=== PATIENT | female | born 1970 | race Caucasian/White ===

== ENCOUNTER 2021-12-05 08:39 | Inpatient (IN) | payer OTHER ==
[2021-12-05 09:35] VITALS: BMI 17.6
[2021-12-05] MEDS ORDERED: METHOCARBAMOL 500 MG TABLET PO PRN (10:07)
[2021-12-05] MEDS ORDERED: MAGNESIUM CITRATE 300 ML BOTTLE PO PRN (10:07)
[2021-12-05] MEDS ORDERED: IBUPROFEN 400 MG TABLET (FP) PO PRN (10:07)
[2021-12-05] MEDS ORDERED: MAGNESIUM HYDROX 2400MG/30ML ORAL SUSPENSION 30 ML CUP PO PRN (10:07)
[2021-12-05] MEDS ORDERED: NICOTINE POLACRILEX 4 MG GUM BUC PRN (10:07)
[2021-12-05] MEDS ORDERED: DICYCLOMINE HCL 10 MG CAPSULE PO PRN (10:07)
[2021-12-05] MEDS ORDERED: ONDANSETRON *ODT* 4 MG TABLET SL PRN (10:07)
[2021-12-05] MEDS ORDERED: BISMUTH SUBSALICYLATE 524 MG/30 ML PO PRN (10:07)
[2021-12-05] MEDS ORDERED: ACETAMINOPHEN 325 MG TABLET (FP) PO PRN (10:07)
[2021-12-05] MEDS ORDERED: BENZOCAINE/MENTHOL (CHLORASEPTIC ) LOZENGE MM PRN (10:07)
[2021-12-05] MEDS ORDERED: LOPERAMIDE HCL 2 MG CAPSULE PO PRN (10:07)
[2021-12-05] MEDS ORDERED: MAG HYDROX/AL HYDROX/SIMETH 30 ML UNIT-DOSE CUP PO PRN (10:07)
[2021-12-05] MEDS ORDERED: ALBUTEROL SO4 HFA INHALER IH PRN (10:10)
[2021-12-05] MEDS: PRENATAL VITAMINS W/ FOLIC ACID TABLET (FP) PO SCH (13:57)
[2021-12-05] MEDS: FAMOTIDINE 20 MG TABLET PO SCH (13:58)
[2021-12-05] MEDS: NICOTINE 10 MG CARTRIDGE (INHALER) IH PRN (13:58)
[2021-12-05] MEDS: FERROUS SO4 325 MG TABLET (FP) PO SCH (13:58)
[2021-12-05] MEDS: LIDOCAINE 5% TOPICAL PATCH TP SCH (14:06)
[2021-12-05] MEDS: NICOTINE 21 MG/24 HOURS TOPICAL PATCH TD SCH (14:07)
[2021-12-05] MEDS ORDERED: MELATONIN 5 MG TABLETS PO SCH (22:00)
[2021-12-05] MEDS: THIAMINE HCL 100 MG TABLET (FP) PO SCH (22:32)
[2021-12-05] MEDS: LIDOCAINE PATCH REMOVAL MC SCH (22:33)
[2021-12-06] MEDS: FERROUS SO4 325 MG TABLET (FP) PO SCH (09:36)
[2021-12-06] MEDS: methaDONE HCL 40 MG DISPERSABLE TABLET PO SCH (09:36)
[2021-12-06] MEDS: LIDOCAINE 5% TOPICAL PATCH TP SCH (09:36)
[2021-12-06] MEDS: PRENATAL VITAMINS W/ FOLIC ACID TABLET (FP) PO SCH (09:36)
[2021-12-06] MEDS: FAMOTIDINE 20 MG TABLET PO SCH (09:36)
[2021-12-06] MEDS: NICOTINE 21 MG/24 HOURS TOPICAL PATCH TD SCH (09:37)
[2021-12-06] MEDS ORDERED: chlordiazePOXIDE HCL 25 MG CAPSULE PO PRN (10:25)
[2021-12-06] MEDS: chlordiazePOXIDE HCL 25 MG CAPSULE PO SCH ×3 (12:04→22:12)
[2021-12-06 16:31] LABS: ALBUMIN 3.2 g/dl (3.4-5.0); BLOOD UREA NITROGEN 9.4 mg/dL (7-18); CALCIUM 8.7 mg/dL (8.5-10.1)
[2021-12-06 16:33] LABS: CREATININE 0.7 mg/dL (0.55-1.3)
[2021-12-06 16:35] LABS: TOT PROT 7.3 g/dl (6.4-8.2)
[2021-12-06 16:36] LABS: BILIRUBIN,TOTAL 0.3 mg/dL (0.2-1)
[2021-12-06 16:51] LABS: HEMOGLOBIN 9.9 GM/dL (10.7-15.3); MCHC 29.9 g/dl (32.0-36.0); MEAN CELL VOLUME 70.2 fl (80-96); MEAN PLT VOLUME 8.9 fl (7.5-11.1); PLATELET COUNT 419 10^3/uL (134-434); RDW 21.6 % (11.6-15.6); WHITE BLOOD COUNT 5.8 K/mm3 (4.0-10.0)
[2021-12-06 17:19] LABS: HIV INTERPRETATION NEGATIVE (NEGATIVE)
[2021-12-06] MEDS: SUVOREXANT 10 MG TABLET PO PRN (22:12)
[2021-12-06] MEDS: THIAMINE HCL 100 MG TABLET (FP) PO SCH (22:12)
[2021-12-06] MEDS: QUEtiapine FUMARATE 100 MG TABLET (FP) PO SCH (22:12)
[2021-12-06] MEDS: LIDOCAINE PATCH REMOVAL MC SCH (22:13)
[2021-12-07] MEDS: methaDONE HCL 40 MG DISPERSABLE TABLET PO SCH (05:46)
[2021-12-07] MEDS: chlordiazePOXIDE HCL 10 MG CAPSULE PO SCH ×4 (05:47→22:08)
[2021-12-07] MEDS: PRENATAL VITAMINS W/ FOLIC ACID TABLET (FP) PO SCH (10:01)
[2021-12-07] MEDS: FAMOTIDINE 20 MG TABLET PO SCH (10:01)
[2021-12-07] MEDS: FERROUS SO4 325 MG TABLET (FP) PO SCH (10:01)
[2021-12-07] MEDS: LIDOCAINE 5% TOPICAL PATCH TP SCH (10:03)
[2021-12-07] MEDS: NICOTINE 21 MG/24 HOURS TOPICAL PATCH TD SCH (10:04)
[2021-12-07] MEDS: ACETAMINOPHEN 325 MG TABLET (FP) PO PRN ×2 (10:06→17:32)
[2021-12-07 21:19] VITALS: RESP 18
[2021-12-07] MEDS: SUVOREXANT 10 MG TABLET PO PRN (22:08)
[2021-12-07] MEDS: THIAMINE HCL 100 MG TABLET (FP) PO SCH (22:08)
[2021-12-07] MEDS: LIDOCAINE PATCH REMOVAL MC SCH (22:08)
[2021-12-07] MEDS: QUEtiapine FUMARATE 100 MG TABLET (FP) PO SCH (22:08)
[2021-12-08] MEDS ORDERED: chlordiazePOXIDE HCL 10 MG CAPSULE PO PRN
[2021-12-08] MEDS: chlordiazePOXIDE HCL 10 MG CAPSULE PO SCH ×2 (05:31→17:56)
[2021-12-08] MEDS: hydrOXYzine PAMOATE 25 MG CAPSULE (FP) PO PRN ×2 (05:31→22:02)
[2021-12-08] MEDS: methaDONE HCL 40 MG DISPERSABLE TABLET PO SCH (05:32)
[2021-12-08] MEDS: NICOTINE 21 MG/24 HOURS TOPICAL PATCH TD SCH (10:16)
[2021-12-08] MEDS: FERROUS SO4 325 MG TABLET (FP) PO SCH (10:16)
[2021-12-08] MEDS: PRENATAL VITAMINS W/ FOLIC ACID TABLET (FP) PO SCH (10:16)
[2021-12-08] MEDS: FAMOTIDINE 20 MG TABLET PO SCH (10:16)
[2021-12-08] MEDS: LIDOCAINE 5% TOPICAL PATCH TP SCH (10:17)
[2021-12-08] MEDS: NICOTINE 10 MG CARTRIDGE (INHALER) IH PRN (10:19)
[2021-12-08] MEDS: ACETAMINOPHEN 325 MG TABLET (FP) PO PRN (17:57)
[2021-12-08] MEDS: SUVOREXANT 10 MG TABLET PO PRN (22:01)
[2021-12-08] MEDS: THIAMINE HCL 100 MG TABLET (FP) PO SCH (22:02)
[2021-12-08] MEDS: QUEtiapine FUMARATE 100 MG TABLET (FP) PO SCH (22:02)
[2021-12-08] MEDS: LIDOCAINE PATCH REMOVAL MC SCH (22:58)
[2021-12-09] MEDS ORDERED: chlordiazePOXIDE HCL 10 MG CAPSULE PO ONE (05:00)
[2021-12-09] MEDS: methaDONE HCL 40 MG DISPERSABLE TABLET PO SCH (05:29)
[2021-12-09 08:58] VITALS: BP 102/60; PULSE 62; TEMP 97.7
[2021-12-09] MEDS: FERROUS SO4 325 MG TABLET (FP) PO SCH (10:13)
[2021-12-09] MEDS: PRENATAL VITAMINS W/ FOLIC ACID TABLET (FP) PO SCH (10:13)
[2021-12-09] MEDS: FAMOTIDINE 20 MG TABLET PO SCH (10:13)
[2021-12-09] MEDS: LIDOCAINE 5% TOPICAL PATCH TP SCH (10:13)
[2021-12-09] MEDS: NICOTINE 21 MG/24 HOURS TOPICAL PATCH TD SCH (10:14)
[2021-12-09] MEDS: ACETAMINOPHEN 325 MG TABLET (FP) PO PRN (10:15)
== END 2021-12-09 11:38 | disposition home or self-care (01) | DRG 773 ==
LOC: YASAS 08:39 → Y3N 12:48 → UNDOADMIN 12:48 → Y3N 16:46
PROVIDERS: ADMIT Allergy & Immunology; ATTEND Surgery
PROC: HZ2ZZZZ Detoxification Services for Substance Abuse Treatment (ICD-10-PCS; principal; 2021-12-05)
DX: F10.230 Alcohol dependence with withdrawal, uncomplicated (principal); F14.20 Cocaine dependence, uncomplicated; F11.20 Opioid dependence, uncomplicated; F12.20 Cannabis dependence, uncomplicated; F17.210 Nicotine dependence, cigarettes, uncomplicated; F31.9 Bipolar disorder, unspecified; F19.282 Other psychoactive substance dependence with psychoactive substance-induced sleep disorder; G62.9 Polyneuropathy, unspecified; D50.9 Iron deficiency anemia, unspecified; J45.909 Unspecified asthma, uncomplicated; K21.9 Gastro-esophageal reflux disease without esophagitis; M17.0 Bilateral primary osteoarthritis of knee; M41.9 Scoliosis, unspecified; M54.50 Low back pain, unspecified; G89.29 Other chronic pain; Z62.810 Personal history of physical and sexual abuse in childhood; Z91.410 Personal history of adult physical and sexual abuse
CPT/HCPCS: 36415; 80053; 81025; 85027; 86780; 87389; 87811; 93005; 93010; C9803-CS; U0003; U0005

== ENCOUNTER 2023-09-23 09:51 | Inpatient (IN) | payer OTHER ==
[2023-09-23 10:34] VITALS: BMI 18.3
[2023-09-23] MEDS ORDERED: NALOXONE HCL 0.4 MG/ML VIAL IM PRN (11:15)
[2023-09-23] MEDS ORDERED: DICYCLOMINE HCL 10 MG CAPSULE PO PRN (11:15)
[2023-09-23] MEDS ORDERED: MAGNESIUM HYDROX 2400MG/30ML ORAL SUSPENSION 30 ML CUP PO PRN (11:15)
[2023-09-23] MEDS ORDERED: LOPERAMIDE HCL 2 MG CAPSULE PO PRN (11:15)
[2023-09-23] MEDS ORDERED: NALOXONE (NARCAN) HCL 4 MG/0.1 ML SPRAY NS PRN (11:15)
[2023-09-23] MEDS ORDERED: IBUPROFEN 400 MG TABLET (FP) PO PRN (11:15)
[2023-09-23] MEDS ORDERED: MAG HYDROX/AL HYDROX/SIMETH 30 ML UNIT-DOSE CUP PO PRN (11:15)
[2023-09-23] MEDS ORDERED: BISMUTH SUBSALICYLATE 524 MG/30 ML PO PRN (11:15)
[2023-09-23] MEDS ORDERED: BENZONATATE 200 MG CAPSULE PO PRN (11:15)
[2023-09-23] MEDS ORDERED: BENZOCAINE/MENTHOL (CHLORASEPTIC ) LOZENGE MM PRN (11:15)
[2023-09-23] MEDS ORDERED: LORazepam 1 MG TABLET PO PRN (11:15)
[2023-09-23] MEDS ORDERED: POLYETHYLENE GLYCOL (HEALTHYLAX) 3350 17 GM PACKET PO PRN (11:15)
[2023-09-23] MEDS ORDERED: ALBUTEROL SO4 HFA INHALER IH PRN (11:21)
[2023-09-23] MEDS ORDERED: methaDONE HCL 40 MG DISPERSABLE TABLET PO SCH ×2 (11:30→13:00)
[2023-09-23] MEDS: GABAPENTIN 300 MG CAPSULE PO SCH ×2 (12:14→13:32)
[2023-09-23] MEDS: ONDANSETRON *ODT* 4 MG TABLET SL PRN (12:15)
[2023-09-23] MEDS ORDERED: GABAPENTIN 100 MG CAPSULE ONE (12:19)
[2023-09-23] MEDS ORDERED: ONDANSETRON *ODT* 4 MG TABLET ONE (12:19)
[2023-09-23] MEDS: FERROUS SO4 325 MG TABLET (FP) PO SCH (15:41)
[2023-09-23] MEDS: LORazepam 2 MG TABLET PO SCH (17:18)
[2023-09-23] MEDS: ACETAMINOPHEN 325 MG TABLET (FP) PO PRN (17:18)
[2023-09-23] MEDS: MELATONIN 5 MG TABLETS PO SCH (22:48)
[2023-09-23] MEDS: THIAMINE 100 MG TABLET PO SCH (22:48)
[2023-09-23] MEDS: diazePAM 5 MG TABLET PO SCH (22:49)
[2023-09-24] MEDS ORDERED: methaDONE HCL 40 MG DISPERSABLE TABLET PO ONE (08:00)
[2023-09-24] MEDS: PRENATAL VITAMINS W/ FOLIC ACID TABLET (FP) PO SCH (10:19)
[2023-09-24] MEDS: FLUoxetine HCL 20 MG CAPSULE PO SCH (10:20)
[2023-09-24 11:18] LABS: CHLORIDE 104 mmol/L (98-107); HEMATOCRIT 30.2 % (32.4-45.2); HEMOGLOBIN 9.7 GM/dL (10.7-15.3); MEAN CELL VOLUME 78.1 fl (80-96); MEAN PLT VOLUME 8.9 fl (7.5-11.1); PLATELET COUNT 327 10^3/uL (134-434); POTASSIUM 3.9 mmol/L (3.5-5.1); RBC 3.87 M/mm3 (3.60-5.2); RDW 19.8 % (11.6-15.6); SODIUM 138 mmol/L (136-145); WHITE BLOOD COUNT 7.2 K/mm3 (4.0-10.0)
[2023-09-24 11:20] LABS: CALCIUM 8.3 mg/dL (8.5-10.1)
[2023-09-24 11:21] LABS: ANION GAP 10 mmol/L (4-13); BLOOD UREA NITROGEN 13.6 mg/dL (7-18); CO2 24 mmol/L (21-32); GLUCOSE,RANDOM 184 mg/dL (74-106)
[2023-09-24 11:24] LABS: CREATININE 0.9 mg/dL (0.55-1.3); SGOT/AST 13 U/L (15-37); SGPT/ALT 14 U/L (13-61)
[2023-09-24 11:25] LABS: BILIRUBIN,TOTAL 0.3 mg/dL (0.2-1); TOT PROT 6.4 g/dl (6.4-8.2)
[2023-09-24 11:27] LABS: ALK PHOS 59 U/L (45-117)
[2023-09-24] MEDS: PNEUMOC 20-VAL CONJ-DIP CRM/PF 0.5 ML SYRINGE IM ONE (12:58)
[2023-09-24] MEDS: guaiFENesin 600 MG TABLET.ER (FP) PO PRN (15:57)
[2023-09-24] MEDS: QUEtiapine FUMARATE 25 MG TABLET PO SCH (22:04)
[2023-09-25] MEDS ORDERED: LORazepam 1 MG TABLET PO SCH (05:00)
[2023-09-25] MEDS: diazePAM 5 MG TABLET PO SCH (05:44)
[2023-09-25] MEDS: IBUPROFEN 600 MG TABLET (FP) PO PRN (15:35)
[2023-09-25] MEDS: diazePAM 5 MG TABLET PO PRN (18:02)
[2023-09-26] MEDS ORDERED: LORazepam 0.5 MG TABLET PO PRN
[2023-09-26] MEDS ORDERED: LORazepam 0.5 MG TABLET PO SCH (05:00)
[2023-09-26] MEDS: diazePAM 5 MG TABLET PO SCH (05:37)
[2023-09-26] MEDS: METHOCARBAMOL 500 MG TABLET PO PRN (05:38)
[2023-09-27] MEDS ORDERED: LORazepam 0.5 MG TABLET PO ONE (05:00)
[2023-09-27] MEDS: diazePAM 5 MG TABLET PO ONE (05:30)
[2023-09-28] MEDS: hydrOXYzine PAMOATE 25 MG CAPSULE (FP) PO PRN (05:53)
[2023-09-29] MEDS: NICOTINE 21 MG/24 HOURS TOPICAL PATCH TD PRN (15:16)
[2023-09-29] MEDS: FAMOTIDINE 10 MG TABLET PO PRN (21:48)
[2023-10-01 09:15] VITALS: RESP 18
[2023-10-01 12:50] VITALS: BP 116/66; PULSE 64; TEMP 97.4
== END 2023-10-01 14:35 | disposition other institution (70) | DRG 773 ==
LOC: YASAS 09:51 → Y6N 12:07 → Y3N 13:02
PROVIDERS: ADMIT Allergy & Immunology; ATTEND Surgery
PROC: HZ2ZZZZ Detoxification Services for Substance Abuse Treatment (ICD-10-PCS; principal; 2023-09-23)
DX: F10.230 Alcohol dependence with withdrawal, uncomplicated (principal); F11.20 Opioid dependence, uncomplicated; F14.20 Cocaine dependence, uncomplicated; F12.20 Cannabis dependence, uncomplicated; F17.210 Nicotine dependence, cigarettes, uncomplicated; F31.9 Bipolar disorder, unspecified; F19.282 Other psychoactive substance dependence with psychoactive substance-induced sleep disorder; F19.24 Other psychoactive substance dependence with psychoactive substance-induced mood disorder; D50.8 Other iron deficiency anemias; M17.0 Bilateral primary osteoarthritis of knee; M25.552 Pain in left hip; M54.50 Low back pain, unspecified; G89.29 Other chronic pain; Z99.89 Dependence on other enabling machines and devices; Z62.810 Personal history of physical and sexual abuse in childhood
CPT/HCPCS: 36415; 80053; 80305; 80307; 81025; 82140; 85027; 86780; 90677; 93005; 93010; G0009; Q0162

== ENCOUNTER 2023-10-01 12:39 | Inpatient (IN) | payer OTHER ==
[2023-10-01] MEDS ORDERED: IBUPROFEN 400 MG TABLET (FP) PO PRN (15:45)
[2023-10-01] MEDS ORDERED: LOPERAMIDE HCL 2 MG CAPSULE PO PRN (15:45)
[2023-10-01] MEDS ORDERED: METHOCARBAMOL 500 MG TABLET PO PRN (15:48)
[2023-10-01] MEDS: METHOCARBAMOL 500 MG TABLET PO PRN (21:09)
[2023-10-01] MEDS: QUEtiapine FUMARATE 25 MG TABLET PO ONE (21:09)
[2023-10-01] MEDS: hydrOXYzine PAMOATE 25 MG CAPSULE (FP) PO PRN (21:09)
[2023-10-02] MEDS ORDERED: methaDONE HCL 40 MG DISPERSABLE TABLET PO SCH (06:00)
[2023-10-02] MEDS ORDERED: MAGNESIUM HYDROX 2400MG/30ML ORAL SUSPENSION 30 ML CUP PO PRN (09:12)
[2023-10-02] MEDS ORDERED: LOPERAMIDE HCL 2 MG CAPSULE PO PRN (09:12)
[2023-10-02] MEDS ORDERED: ACETAMINOPHEN 325 MG TABLET (FP) PO PRN (09:12)
[2023-10-02] MEDS ORDERED: BENZONATATE 200 MG CAPSULE PO PRN (09:12)
[2023-10-02] MEDS ORDERED: IBUPROFEN 400 MG TABLET (FP) PO PRN (09:12)
[2023-10-02] MEDS ORDERED: POLYETHYLENE GLYCOL (HEALTHYLAX) 3350 17 GM PACKET PO PRN (09:12)
[2023-10-02] MEDS ORDERED: NALOXONE HCL 0.4 MG/ML VIAL IVPUSH PRN (09:12)
[2023-10-02] MEDS ORDERED: NALOXONE (NYS OPIOID OVERDOSE PROGRAM) 4 MG/0.1 ML SPRAY NS PRN (09:12)
[2023-10-02] MEDS ORDERED: MAG HYDROX/AL HYDROX/SIMETH 30 ML UNIT-DOSE CUP PO PRN (09:12)
[2023-10-02] MEDS: PRENATAL VITAMINS W/ FOLIC ACID TABLET (FP) PO SCH ×2 (09:44→10:57)
[2023-10-02] MEDS: QUEtiapine FUMARATE 50 MG TABLET PO SCH (21:18)
[2023-10-02] MEDS: MELATONIN 5 MG TABLETS PO SCH (21:18)
[2023-10-02] MEDS: THIAMINE 100 MG TABLET PO SCH (21:18)
[2023-10-02] MEDS: METHOCARBAMOL 500 MG TABLET PO PRN (21:19)
[2023-10-03] MEDS: IBUPROFEN 600 MG TABLET (FP) PO PRN (06:31)
[2023-10-03] MEDS: FLUoxetine HCL 20 MG CAPSULE PO SCH (09:47)
[2023-10-03] MEDS: hydrOXYzine PAMOATE 25 MG CAPSULE (FP) PO PRN (09:47)
[2023-10-03] MEDS: NICOTINE 21 MG/24 HOURS TOPICAL PATCH TD SCH (11:02)
[2023-10-04] MEDS: GABAPENTIN 300 MG CAPSULE PO SCH (13:18)
[2023-10-04] MEDS: BENZOCAINE/MENTHOL (CHLORASEPTIC ) LOZENGE MM PRN (21:14)
[2023-10-04] MEDS: BACLOFEN 10 MG TABLET (FP) PO SCH (21:14)
[2023-10-04] MEDS: guaiFENesin 600 MG TABLET.ER (FP) PO PRN (21:14)
[2023-10-05] MEDS: ONDANSETRON *ODT* 4 MG TABLET SL PRN (06:14)
[2023-10-05 14:20] LABS: INR 0.95 (0.83-1.09); PROTHROMBIN TIME (PATIENT) 10.8 SEC (9.7-13.0)
[2023-10-05 14:50] LABS: MAGNESIUM 1.9 mg/dL (1.8-2.4)
[2023-10-05] MEDS: QUEtiapine FUMARATE 50 MG TABLET PO SCH (21:44)
[2023-10-06] MEDS: LACTULOSE 20 GM/30 ML UDC (FOR ORAL USE ONLY) PO SCH (14:33)
[2023-10-08] MEDS: ALBUTEROL SO4 HFA INHALER IH PRN (06:25)
[2023-10-09 07:10] VITALS: BP 118/76; PULSE 62; RESP 16; TEMP 98
== END 2023-10-09 11:00 | disposition home or self-care (01) | DRG 772 ==
LOC: YASAS 12:39 → Y3NR 12:40 → Y5N 10-02 13:37
PROVIDERS: ADMIT Allergy & Immunology; ATTEND Psychiatry & Neurology Pain Medicine
PROC: HZ42ZZZ Group Counseling for Substance Abuse Treatment, Cognitive-Behavioral (ICD-10-PCS; principal; 2023-10-01)
DX: F10.20 Alcohol dependence, uncomplicated (principal); F14.20 Cocaine dependence, uncomplicated; F11.20 Opioid dependence, uncomplicated; F12.20 Cannabis dependence, uncomplicated; F17.210 Nicotine dependence, cigarettes, uncomplicated; F31.9 Bipolar disorder, unspecified; F19.282 Other psychoactive substance dependence with psychoactive substance-induced sleep disorder; E72.20 Disorder of urea cycle metabolism, unspecified; G47.00 Insomnia, unspecified; G62.9 Polyneuropathy, unspecified; M17.0 Bilateral primary osteoarthritis of knee; M19.041 Primary osteoarthritis, right hand; M19.042 Primary osteoarthritis, left hand; M54.50 Low back pain, unspecified; G89.29 Other chronic pain
CPT/HCPCS: 36415; 80061; 82140; 82652; 83735; 85610; 86803; 87522; 87811; J0475; Q0162

== ENCOUNTER 2024-01-27 18:08 | Inpatient (IN) | payer OTHER ==
[2024-01-27 19:50] VITALS: BMI 16.5
[2024-01-27] MEDS ORDERED: MAGNESIUM HYDROX 2400MG/30ML ORAL SUSPENSION 30 ML CUP PO PRN (22:10)
[2024-01-27] MEDS ORDERED: guaiFENesin 600 MG TABLET.ER (FP) PO PRN (22:10)
[2024-01-27] MEDS ORDERED: POLYETHYLENE GLYCOL (HEALTHYLAX) 3350 17 GM PACKET PO PRN (22:10)
[2024-01-27] MEDS ORDERED: IBUPROFEN 400 MG TABLET (FP) PO PRN (22:10)
[2024-01-27] MEDS ORDERED: DICYCLOMINE HCL 10 MG CAPSULE PO PRN (22:10)
[2024-01-27] MEDS ORDERED: ACETAMINOPHEN 325 MG TABLET (FP) PO PRN (22:10)
[2024-01-27] MEDS ORDERED: hydrOXYzine PAMOATE 25 MG CAPSULE (FP) PO PRN (22:10)
[2024-01-27] MEDS ORDERED: BENZONATATE 200 MG CAPSULE PO PRN (22:10)
[2024-01-27] MEDS ORDERED: BISMUTH SUBSALICYLATE 524 MG/30 ML PO PRN (22:10)
[2024-01-27] MEDS ORDERED: LOPERAMIDE HCL 2 MG CAPSULE PO PRN (22:10)
[2024-01-27] MEDS ORDERED: MAG HYDROX/AL HYDROX/SIMETH 30 ML UNIT-DOSE CUP PO PRN (22:10)
[2024-01-27] MEDS ORDERED: NALOXONE (NARCAN) HCL 4 MG/0.1 ML SPRAY NS PRN (22:10)
[2024-01-27] MEDS ORDERED: BENZOCAINE/MENTHOL (CHLORASEPTIC ) LOZENGE MM PRN (22:10)
[2024-01-27] MEDS ORDERED: NICOTINE POLACRILEX 2 MG GUM BUC PRN (22:10)
[2024-01-28] MEDS ORDERED: ALBUTEROL SO4 HFA INHALER IH PRN (08:37)
[2024-01-28 09:55] LABS: HEMATOCRIT 36.4 % (32.4-45.2); HEMOGLOBIN 11.3 GM/dL (10.7-15.3); MCH 24.4 pg (25.7-33.7); MCHC 31.1 g/dl (32.0-36.0); MEAN CELL VOLUME 78.7 fl (80-96); MEAN PLT VOLUME 8.9 fl (7.5-11.1); PLATELET COUNT 424 10^3/uL (134-434); RBC 4.62 M/mm3 (3.60-5.2); RDW 20.5 % (11.6-15.6)
[2024-01-28] MEDS: NICOTINE 14 MG/24 HOURS TOPICAL PATCH TD SCH (09:59)
[2024-01-28] MEDS: PRENATAL VITAMINS W/ FOLIC ACID TABLET (FP) PO SCH (09:59)
[2024-01-28 10:22] LABS: CHLORIDE 108 mmol/L (98-107); POTASSIUM 4.8 mmol/L (3.5-5.1); SODIUM 140 mmol/L (136-145)
[2024-01-28 10:34] LABS: ALBUMIN 3.5 g/dl (3.4-5.0)
[2024-01-28 10:35] LABS: ANION GAP 2 mmol/L (4-13); CO2 30 mmol/L (21-32); GLUCOSE,RANDOM 95 mg/dL (74-106)
[2024-01-28 10:37] LABS: BLOOD UREA NITROGEN 13.6 mg/dL (7-18)
[2024-01-28 10:38] LABS: CREATININE 0.9 mg/dL (0.55-1.3); SGOT/AST 21 U/L (15-37); SGPT/ALT 18 U/L (13-61)
[2024-01-28 10:39] LABS: BILIRUBIN,TOTAL 0.3 mg/dL (0.2-1); TOT PROT 7.4 g/dl (6.4-8.2)
[2024-01-28 10:40] LABS: ALK PHOS 73 U/L (45-117)
[2024-01-28] MEDS: methaDONE 80 MG, methaDONE 10 MG PO ONE ×3 (10:50→14:04)
[2024-01-28] MEDS: GABAPENTIN 300 MG CAPSULE PO SCH (14:04)
[2024-01-28] MEDS: ONDANSETRON *ODT* 4 MG TABLET SL PRN (16:25)
[2024-01-28] MEDS: TRIMETHOBENZAMIDE HCL 200MG/2ML INJ IM ONE (17:41)
[2024-01-28] MEDS ORDERED: diazePAM 5 MG TABLET PO PRN (19:46)
[2024-01-28] MEDS ORDERED: TRIMETHOBENZAMIDE HCL 200MG/2ML INJ IM PRN (21:30)
[2024-01-28] MEDS: MELATONIN 5 MG TABLETS PO SCH (22:08)
[2024-01-28] MEDS: QUEtiapine FUMARATE 50 MG TABLET PO SCH (22:10)
[2024-01-28] MEDS: THIAMINE 100 MG TABLET PO SCH (22:10)
[2024-01-28] MEDS: diazePAM 5 MG TABLET PO SCH (22:10)
[2024-01-29] MEDS ORDERED: methaDONE HCL 10 MG TABLET PO ONE (08:33)
[2024-01-30] MEDS ORDERED: methaDONE HCL 10 MG TABLET PO SCH (06:00)
[2024-01-30] MEDS: diazePAM 5 MG TABLET PO SCH (06:01)
[2024-01-30] MEDS: METHOCARBAMOL 500 MG TABLET PO PRN (11:52)
[2024-01-31] MEDS: diazePAM 5 MG TABLET PO SCH (05:40)
[2024-01-31] MEDS: IBUPROFEN 600 MG TABLET (FP) PO PRN (17:30)
[2024-02-01] MEDS: diazePAM 5 MG TABLET PO ONE (05:37)
[2024-02-01 06:40] VITALS: RESP 16
[2024-02-01 10:41] VITALS: BP 101/57; PULSE 68; TEMP 98
[2024-02-01] MEDS: NALOXONE (NYS OPIOID OVERDOSE PROGRAM) 4 MG/0.1 ML SPRAY NS PRN (11:56)
== END 2024-02-01 11:58 | disposition home or self-care (01) | DRG 773 ==
LOC: YASAS 18:08 → Y6N 23:13 → UNDOADMIN 23:13
PROVIDERS: ADMIT Allergy & Immunology; ATTEND Surgery
PROC: HZ2ZZZZ Detoxification Services for Substance Abuse Treatment (ICD-10-PCS; principal; 2024-01-27)
DX: F10.230 Alcohol dependence with withdrawal, uncomplicated (principal); F11.20 Opioid dependence, uncomplicated; F14.20 Cocaine dependence, uncomplicated; F12.20 Cannabis dependence, uncomplicated; F17.210 Nicotine dependence, cigarettes, uncomplicated; F19.280 Other psychoactive substance dependence with psychoactive substance-induced anxiety disorder; F19.282 Other psychoactive substance dependence with psychoactive substance-induced sleep disorder; F90.9 Attention-deficit hyperactivity disorder, unspecified type; J45.20 Mild intermittent asthma, uncomplicated; M17.0 Bilateral primary osteoarthritis of knee; M62.81 Muscle weakness (generalized); M54.50 Low back pain, unspecified; G89.29 Other chronic pain; Z99.89 Dependence on other enabling machines and devices; Z62.810 Personal history of physical and sexual abuse in childhood; Z91.410 Personal history of adult physical and sexual abuse
CPT/HCPCS: 36415; 80053; 80305; 80307; 81025; 85027; 86780; 93005; 93010; Q0162